=== PATIENT | female | born 1995 | race Caucasian/White ===

== ENCOUNTER 2022-05-26 13:16 | Outpatient (CLI) | payer MEDICAID, SELFPAY ==
--- NOTE | 2022-05-26 14:09 | US_ITS ---
WS: [id number] LIMITED OBSTETRICAL ULTRASOUND HISTORY: UNSURE OF LMP COMPARISON: None available. Presentation: Breech. Cervix: Closed and normal length. Maternal ovaries are identified and normal. No adnexal mass. Placenta: Posterior, no previa or abruption. Grade: 0 HEART: FHR of 138 BPM. measurements: BPD = 4.6 cm = 20w0d HC = 17.0 cm = 19w5d AC = 14.7 cm = 20w0d FL = 3.1 cm = 19w5d Normal amniotic fluid. EFW: 315 g; %. AGA by ultrasound: 19w6d ALYCIA by ultrasound: 10/14/2022 US/US OB limited [id number] IMPRESSION: 1. Single intrauterine gestation of 19 weeks 6 days with an EDC of 10/14/2022. 2. Normal cardiac activity.
== END 2022-05-26 13:17 | disposition home or self-care (01) ==
LOC: RAD 13:16
PROVIDERS: PCP General Practice; Visit Provider Family Medicine
DX: Z36.87 Encounter for antenatal screening for uncertain dates (principal); Z3A.19 19 weeks gestation of pregnancy
CPT/HCPCS: 76815

== ENCOUNTER 2022-09-08 23:20 | Outpatient (CLI) | payer MEDICAID, SELFPAY ==
[2022-09-08 23:38] VITALS: BP 119/68; PULSE 88
[2022-09-08 23:39] VITALS: TEMP 38.1
[2022-09-09 00:19] VITALS: BP 124/72; PULSE 81
[2022-09-09] MEDS: acetaminophen 325 mg Tablet 650 MG PO (00:31)
[2022-09-09 00:39] VITALS: BP 118/69; PULSE 83
[2022-09-09 00:59] VITALS: BP 109/63; PULSE 74
[2022-09-09 01:11] LABS: Urine Appearance Clear (CLEAR); Urine Color Yellow (Yellow)
[2022-09-09 01:12] LABS: Bacteria Urine 1+ /hpf; Bilirubin Urine Neg (Negative); Blood Urine Neg (Negative); Glucose Urine UA Norm (Normal); Ketones Urine 1+ (Negative); Nitrate Urine Negative (Negative); Protein Urine Trace (Negative); RBC Urine 0-4 /hpf (0-2); Specific Gravity, Urine 1.025 (1.005-1.030); Urobilinogen Urine Norm (Negative); WBC Urine 0-4 /hpf (0-5); pH Urine 6 (5-7)
[2022-09-09 01:14] LABS: Add Urine Culture? No
[2022-09-09 01:20] VITALS: BP 116/74; PULSE 73
[2022-09-09 01:22] LABS: Leukocyte Esterase Urine Negative (Negative)
== END 2022-09-09 01:45 | disposition home or self-care (01) ==
LOC: OPOB 23:21 → OBGYN 09-09 01:37
PROVIDERS: PCP General Practice; Visit Provider Family Medicine
DX: O26.899 Other specified pregnancy related conditions, unspecified trimester (principal); Z3A.00 Weeks of gestation of pregnancy not specified; R10.9 Unspecified abdominal pain
CPT/HCPCS: 59025; 81001; 99211

== ENCOUNTER → 2022-09-10 15:06 | Outpatient (BNVA) | payer MEDICAID, SELFPAY | PROVIDERS: PCP Family Medicine; Visit Provider Registered Nurse Neonatal Intensive Care | DX: R05.9 Cough, unspecified (principal) | CPT/HCPCS: 87400 ==

== ENCOUNTER 2022-10-01 10:31 | Inpatient (IN) | payer MEDICAID, SELFPAY ==
[2022-10-01] VITALS (80 sets, daily range): BP systolic 105–149; BP diastolic 52–86; PULSE 57–86; RESP 16–18; TEMP 36.2–36.6; O2SAT 97–99; BMI 31.2
[2022-10-01] MEDS: ceFAZolin 2,000 MG in sodium chloride 0.9% (plus) 50 ML 100 MG IV (10:00)
[2022-10-01] MEDS: dextrose 5%-lactated ringers 1,000 ML 125 ML IV ×2 (10:15→19:29)
[2022-10-01 10:42] LABS: Basophils % 0.3 %; Eosinophils # 0.1 10^3/uL (0.0-0.8); Eosinophils % 0.8 %; Hematocrit 37.8 % (37.0-47.0); Hemoglobin 12.8 g/dL (11.5-15.3); Lymphocytes # 3.7 10^3/uL (0.8-4.8); Lymphocytes % 28.1 %; Mean Corpuscular HGB Conc 33.9 g/dL (30.0-36.0); Mean Corpuscular Hemoglobin 30.7 pg (28.0-34.0); Mean Corpuscular Volume 90.6 fl (81-99); Mean Platelet Volume 10.6 fL (7.4-10.4); Monocytes # 0.8 10^3/uL (0.2-0.9); Monocytes % 5.9 %; Neutrophils % 64.3 %; Nucleated Red Blood Cells % 0 %; Platelet Count 229 10^3/cmm (130-400); Red Blood Count 4.17 10^6/uL (4.1-5.3); Red Cell Distribution Width 14.1 % (12.1-15.1); White Blood Count 13.1 10^3/uL (4.0-10.0)
[2022-10-01 11:18] LABS: Amphetamines Screen Urine Negative (Negative); Barbiturates Screen Urine Negative (Negative); Benzodiazepines Screen Urine Negative (Negative); Cocaine Screen Urine Negative (Negative); Opiate Screen Urine Negative (Negative); PCP Screen Urine Negative (Negative); THC Screen Urine Positive (Negative)
[2022-10-01] MEDS: fentaNYL 50 mcg/mL INJ 2mL IVP ×2 (11:25→12:57)
[2022-10-01] MEDS: ondansetron 2 mg/ML SDV 2 mL 4 MG IVP (11:26)
[2022-10-01] MEDS: acetaminophen 325 mg Tablet 650 MG PO (11:26)
[2022-10-01] MEDS: lactated ringers 1,000 ML 999 ML IV (12:56)
[2022-10-01] MEDS: lactated ringers 1,000 ML 500 ML IV (14:06)
--- NOTE | 2022-10-01 14:08 | P.ANESUD_ITS ---
Pre-Anesthetic Update Pre-Anesthetic Assessment: Date of Surgery/Procedure: 10/01/22 Preop Racheal gnosis: IUP Proposed Procedure: epidural Any changes to Pre-Anesthetic Assessment?: No Labs Last 48hrs: Short CBC 10/01/22 Range/Units 09:55 WBC 13.1 H (4.0-10.0) 10^3/ uL Hgb 12.8 (11.5-15.3) g/dL Hct 37.8 (37.0-47.0) % MCV 90.6 (81-99) fl Plt Count 229 (130-400) 10^3/c mm Neut % (Auto) 64.3 % Neut # (Auto) 8.40 H (1.8-7.7) 10^3/u L Vitals: Temperature 97.9 F 10/01/22 11:35 Temperature Source Oral 10/01/22 11:35 Pulse Rate 71 10/01/22 14:05 Pulse Rhythm 10/01/22 10:57 Respiratory Rate 18 10/01/22 12:57 Respiratory Effort Non-Labored 10/01/22 12:57 Respiratory Depth Normal 10/01/22 12:57 Respiratory Patter n 10/01/22 12:57 Blood Pressure 138/64 10/01/22 14:05 Pulse Oximetry 98 10/01/22 14:01 Oxygen Delivery Me thod 10/01/22 10:57 Exam: Pre-Anes Outpt Exam: alert, oriented x 3, clear to auscultation bilaterally and regular rate & rhythm Cardiac Studies: No Data to Display
--- NOTE | 2022-10-01 14:08 | ANES.PROC ---
Anesthesia Procedures Procedure/Date: 10/01/22 Epidural: Time Out Performed: Yes Consents Signed: Procedure Consent Consent: requested by attending/covering physician, from patient, from other, risks and benefits reviewed and patient agrees to proceed Lumbar Level: L3-L4 Epidural position: sitting Epidural procedure: sterile prep of area, 1% lidocaine to numb the area, 18 g needle, negative for paresthesia passed, neg for paresthesia, test dose given, 1.5% xylocaine 1:200k epi (5 ml), 0.2% Ropivacaine bolus ml (5), placed PCEA, no systemic response, sterile dressing applied, L.U.D. no apparent complications and 0.2% Ropiavacaine @ mls/hr (3) Additional Comments: ALANIS at 5 cm, threaded to 11 cm. patient reported subsequent pain free contraction
[2022-10-01] MEDS: acyclovir 400 mg Tablet PO (14:39)
--- NOTE | 2022-10-01 17:30 | P.HPUD_ITS ---
Labor & Delivery H&P Update Date of Procedure: October 01, 2022 Date H&P Performed: 09/29/22 Admission Diagnosis: 27-year-old 1 at 38 weeks estimated gestational age presenting to the hospital in active labor Other information: The patient is a 27-year-old female who presented to the hospital with 2 hours of contractions. After 2 hours, she was found to make cervical change, and she was admitted to the hospital in labor. Her has been relatively unremarkable. Her labs were remarkable for having a blood type is O+. Her antibody screen was negative. She is positive for marijuana. She had bacterial vaginosis. She failed her initial glucose screen but passed her 3- hour. Her GBS status is positive. She is rubella immune. She received a Tdap vaccination. Related Problem List Diagnoses (1) 38 weeks gestation of : (2) Positive GBS test: A&P Assessment and plan (1) 38 weeks gestation of : The patient will be started GBS protocol. We will consider fentanyl as well as an epidural to control her pain. We will check a drug screen due to her history of positive marijuana drug screen during her . Status: Acute (2) Positive GBS test: Status: Acute
[2022-10-01] MEDS: ceFAZolin 1,000 MG in sodium chloride 0.9% (plus) 50 ML 100 MG IV (18:07)
[2022-10-02] VITALS (15 sets, daily range): BP systolic 114–155; BP diastolic 61–81; PULSE 61–96; RESP 17–18; TEMP 36.3–37.2
[2022-10-02] MEDS: nicotine 21 mg Patch 1 PATCH TRANSDERMA (00:56)
[2022-10-02] MEDS: benzocaine-menthol 78 gm Canister 1 SPRAY TOPICAL (01:37)
--- NOTE | 2022-10-02 09:19 | PM.DELIVERY ---
Delivery Note: Date of delivery: October 02, 2022 Pre-delivery diagnoses: 27-year-old 1 at 38 weeks estimated gestational age in active labor Post-delivery diagnoses: Status post vacuum-assisted vaginal delivery Procedure: Vacuum-assisted vaginal delivery Estimated blood loss (mL): 150 Pre-Delivery Course: The patient presented to the hospital in active labor. An epidural was placed. An amniotomy was performed. She then progressed to complete and was pushing effectively for about 1/2-hour. The baby then began having persistent late decelerations. As result, I used the vacuum during 1 contraction and we were able to deliver the baby without difficulty. There were no pop offs. Delivery: DELIVERY: The patient progressed to complete without difficulty. She delivered a female with a weight of 5 pounds 13 ounces with Apgars of 9, 10. The baby was delivered from the BRYANT position. The baby's mouth and nose were suctioned at the site of the perineum. The baby was then completely delivered and placed on the mother's abdomen. The cord was then clamped and cut. There was no nuchal cord. There was no meconium. The placenta and 3 vessel cord were delivered intact shortly thereafter. The perineum and vaginal vault were carefully examined. The labia majora and minora were very swollen, but no lacerations were noted. Both the mother and the baby were in stable condition. Post-Delivery Status: Good A&P Assessment and plan (1) Vacuum-assisted vaginal delivery: I anticipate routine care. Coding Level of Care Code Acute Radiator Specialist for [facility] Diagnoses Vacuum-assisted vaginal delivery Z37.9
--- NOTE | 2022-10-02 09:24 | PM.OBGYDC ---
Discharge Providers DATAPOWER DEVELOPER Date of Admission: 10/01/22 10:31 Date of Discharge: 10/02/22 Attending Provider at Admission: Dawit Marrero MD Attending Provider at Discharge: Dawit Marrero MD Primary Care Provider: Dawit Marrero MD Diagnoses at Discharge Discharge Diagnosis (1) 38 weeks gestation of : Status: Acute (2) Positive GBS test: Status: Acute (3) Vacuum-assisted vaginal delivery: Status: Acute Reason for Visit Reason for Visit: contractions Hospital Course Hospital Course The patient presented to the hospital in active labor. An epidural was placed. An amniotomy was performed. The patient progressed to complete and was pushing when she began having sustained heart tone decelerations. As result a vacuum assist was used during 1 contraction. The baby was delivered without difficulty in a vertex position. Both the mother and baby required resuscitative care postdelivery. The mother's bleeding has been within normal limits. Her pain is been well controlled. She has been breast-feeding well. She was positive for marijuana both during her as well as after admission to the hospital. DFS was contacted and will be in touch with the mother. Information Peripartum Data: Infant Delivery Method: Vaginal Physical Exam Narrative: The patient is alert. She appears comfortable. Her heart has a regular rate and rhythm with no murmurs appreciated. Lungs are clear to auscultation bilaterally. Her fundus is firm and below the umbilicus. Urinary Catheter Management: Lopez Latex: Cath Placed During This Visit: yes Reason for Continuing Indwelling Catheter: Acute Urinary Retention or Obstruction Urinary Catheter Date of Insertion: 10/01/22 Urinary Catheter Time of Insertion: 14:30 Discharge Data Studies Completed and Pending Pending at discharge Category Date Time Status Hemagram Timed Lab 10/02/22 10:08 Uncollected Laboratory Results WBC 13.1 10^3/uL (4.0-10.0) H 10/01/22 09:55 RBC 4.17 10^6/uL (4.1-5.3) 10/01/22 09:55 Hgb 12.8 g/dL (11.5-15.3) 10/01/22 09:55 Hct 37.8 % (37.0-47.0) 10/01/22 09:55 MCV 90.6 fl (81-99) 10/01/22 09:55 MCH 30.7 pg (28.0-34.0) 10/01/22 09:55 MCHC 33.9 g/dL (30.0-36.0) 10/01/22 09:55 RDW 14.1 % (12.1-15.1) 10/01/22 09:55 Plt Count 229 10^3/cmm (130-400) 10/01/22 09:55 MPV 10.6 fL (7.4-10.4) H 10/01/22 09:55 Neut % (Auto) 64.3 % 10/01/22 09:55 Lymph % (Auto) 28.1 % 10/01/22 09:55 [place] % (Auto) 5.9 % 10/01/22 09:55 Eos % (Auto) 0.8 % 10/01/22 09:55 Baso % (Auto) 0.3 % 10/01/22 09:55 Neut # (Auto) 8.40 10^3/uL (1.8-7.7) H 10/01/22 09:55 Lymph # (Auto) 3.7 10^3/uL (0.8-4.8) 10/01/22 09:55 [place] # (Auto) 0.8 10^3/uL (0.2-0.9) 10/01/22 09:55 Eos # (Auto) 0.1 10^3/uL (0.0-0.8) 10/01/22 09:55 Baso # (Auto) 0.0 10^3/uL (0.0-0.1) 10/01/22 09:55 Nucleated RBC % (auto) 0 % 10/01/22 09:55 Nucleated RBCs # 0.0 /100WBC 10/01/22 09:55 Urine Opiates Screen Negative ng/mL (Negative) 10/01/22 09:55 Ur Barbiturates Screen Negative ng/mL (Negative) 10/01/22 09:55 Ur Phencyclidine Scrn Negative ng/mL (Negative) 10/01/22 09:55 Ur Amphetamines Screen Negative ng/mL (Negative) 10/01/22 09:55 U Benzodiazepines Scrn Negative ng/mL (Negative) 10/01/22 09:55 Urine Cocaine Screen Negative ng/mL (Negative) 10/01/22 09:55 U Marijuana (THC) Screen Positive ng/mL (Negative) H 10/01/22 09:55 Vitals Last Vital Signs Temp 98.9 F 10/02/22 05:45 Pulse 70 10/02/22 05:45 Resp 16 10/01/22 22:45 BP 139/66 10/02/22 05:45 Pulse Ox 99 10/01/22 14:36 O2 Del Method 10/01/22 10:57 Discharge Plan Discharge Patient Disposition: Home Condition: Stable Prescriptions: New ibuprofen 800 mg Tablet 800 mg PO TID Qty: 45 0RF Continued prenat.vits,darren,mdf-xxro-djogz Tablet 1 tab PO DAILY Discontinued ondansetron HCl 4 mg tablet 4 mg PO Q8H Discharge Orders: Discharge Order (Routine); Ordered 10/02/22 Ordered By: Dawit Marrero Referrals: Dawit Marrero MD [Primary Care Provider] - 6 Weeks Discharge Diet: Usual diet Discharge Activity: Limit activity as instructed Patient Instructions: Opioid Safety Discharge Attestations DATAPOWER DEVELOPER Time Spent in Discharge Care*: less than 30 min Coding Level of Care Code Acute Family Nurse for [facility] Diagnoses 38 weeks gestation of Z3A.38 Positive GBS test B95.1 Vacuum-assisted vaginal delivery Z37.9
[2022-10-02] MEDS: docusate sodium 100 mg Capsule PO (09:48)
[2022-10-02] MEDS: ibuprofen 800 mg tablet PO ×3 (09:48→21:16)
[2022-10-02] MEDS: prenatal vitamin Capsule 1 CAP PO (09:49)
[2022-10-02 10:12] LABS: Hematocrit 38.1 % (37.0-47.0); Hemoglobin 12.8 g/dL (11.5-15.3); Mean Corpuscular HGB Conc 33.6 g/dL (30.0-36.0); Mean Corpuscular Hemoglobin 30.5 pg (28.0-34.0); Mean Corpuscular Volume 90.9 fl (81-99); Mean Platelet Volume 10.9 fL (7.4-10.4); Platelet Count 223 10^3/cmm (130-400); Red Blood Count 4.19 10^6/uL (4.1-5.3); Red Cell Distribution Width 14.2 % (12.1-15.1); White Blood Count 19.4 10^3/uL (4.0-10.0)
--- NOTE | 2022-10-02 14:02 | ANE.PACU2 ---
Inpatient post-anesthesia follow up: Airway intact: Yes Vital signs: Temperature 97.7 F Pulse Rate 96 Respiratory Rate 17 Blood Pressure 155/81 Pulse Oximetry 99 Oxygen Delivery Me thod Room Air Oxygen Flow Rate Fraction of Inspir ed Oxygen Hydration adequate: Yes Nausea and vomiting: No Pain level: 1 Mental status: Baseline
[2022-10-02] MEDS: lanolin oint 7 gm 1 APPLIC TOPICAL (21:20)
[2022-10-03 02:00] VITALS: BP 155/80; PULSE 68; RESP 18; TEMP 36.4
[2022-10-03] MEDS: docusate sodium 100 mg Capsule PO (08:24)
[2022-10-03] MEDS: ibuprofen 800 mg tablet PO (08:24)
[2022-10-03] MEDS: prenatal vitamin Capsule 1 CAP PO (08:24)
[2022-10-03 10:00] VITALS: BP 138/80; PULSE 74; RESP 16; TEMP 36.6; O2SAT 97
--- NOTE | 2022-10-03 10:20 | PC.NURSE ---
Received call from [facility] with [facility]. Pt mothers home failed home inspection, baby's fathers home passed home inspection. Mother and baby are to be discharged home with Bijan and his mother Renetta.
[2022-10-03 13:45] VITALS: BP 129/77; PULSE 82; RESP 18; TEMP 36.7; O2SAT 98
== END 2022-10-03 13:52 | disposition home or self-care (01) | DRG 807 ==
LOC: OPOB 10:31 → OBGYN 10:31
PROVIDERS: Admitting Provider Family Medicine; PCP Family Medicine; Visit Provider Family Medicine
DX: O99.334 Smoking (tobacco) complicating childbirth (principal); Z37.0 Single live birth; F17.210 Nicotine dependence, cigarettes, uncomplicated; O99.344 Other mental disorders complicating childbirth; O99.324 Drug use complicating childbirth; F12.90 Cannabis use, unspecified, uncomplicated; O99.824 Streptococcus B carrier state complicating childbirth; O76 Abnormality in fetal heart rate and rhythm complicating labor and delivery; Z3A.38 38 weeks gestation of pregnancy; F32.A Depression, unspecified
CPT/HCPCS: 12345; 36415; 51702; 59025; 59409; 80306; 85025; 85027; 96374; 96376; 98960; 99211; J0690; J2405; J2795; J3010; J7120; J7121; J8499

== ENCOUNTER → 2023-06-01 14:58 | Outpatient (BNVA) | payer MEDICAID, SELFPAY | PROVIDERS: PCP Family Medicine; Visit Provider Nurse Practitioner Family | DX: R05.9 Cough, unspecified (principal); J06.9 Acute upper respiratory infection, unspecified | CPT/HCPCS: 87426 ==

== ENCOUNTER → 2024-02-10 18:17 | Outpatient (BNVA) | payer OTHER, MEDICAID, SELFPAY | PROVIDERS: PCP Family Medicine; Visit Provider Physician Assistant | DX: R50.9 Fever, unspecified (principal) | CPT/HCPCS: 87400 ==

== ENCOUNTER 2025-05-03 03:53 | Emergency (ER) | payer MEDICAID, SELFPAY ==
[2025-05-03 04:05] VITALS: PULSE 92; RESP 16; TEMP 37; O2SAT 99; BMI 26.3
[2025-05-03 04:20] VITALS: BP 150/87; PULSE 91; O2SAT 98
--- NOTE | 2025-05-03 04:25 | XRR_ITS ---
PROCEDURE INFORMATION: Exam: XR Right Hand Exam date and time: 05/03/2025 4:34 AM Age: 29 years old Clinical indication: Pain; Finger(s); Right; Additional info: Traumatic hand pain TECHNIQUE: Imaging protocol: Radiologic exam of the right hand. Views: 3 or more views. COMPARISON: No relevant prior studies available. FINDINGS: Bones/joints: Benign sclerotic changes 5th metacarpal. Soft tissues: Normal. XR/XR hand RT min 3V* [id number] IMPRESSION: No acute findings.
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
[2025-05-03] MEDS: HYDROcodone-acetaminophen 10-325 mg Tablet 2 TAB PO (05:08)
[2025-05-03 05:44] VITALS: BP 121/55; PULSE 76; RESP 16; O2SAT 96
--- NOTE | 2025-05-03 05:45 | PC.NURSE ---
pt picked up by mother upon discharge
== END 2025-05-03 05:49 | disposition home or self-care (01) ==
PROVIDERS: Emergency Provider Emergency Medicine; PCP Family Medicine
DX: S63.614A Unspecified sprain of right ring finger, initial encounter (principal); S63.616A Unspecified sprain of right little finger, initial encounter; W22.09XA Striking against other stationary object, initial encounter
CPT/HCPCS: 73130; 99283; J9999

== ENCOUNTER 2025-05-06 02:50 | Emergency (ER) | payer MEDICAID, SELFPAY ==
[2025-05-06 02:55] VITALS: BP 142/76; PULSE 98; RESP 24; TEMP 36.6; O2SAT 100; BMI 25.2
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
[2025-05-06 05:10] VITALS: BP 133/78; PULSE 78; RESP 16; O2SAT 99
== END 2025-05-06 05:13 | disposition home or self-care (01) ==
PROVIDERS: Emergency Provider General Practice; PCP Family Medicine
DX: S61.211A Laceration without foreign body of left index finger without damage to nail, initial encounter (principal); W26.8XXA Contact with other sharp object(s), not elsewhere classified, initial encounter
CPT/HCPCS: 99282

== ENCOUNTER 2025-05-28 18:43 | Emergency (ER) | payer MEDICAID, SELFPAY ==
[2025-05-28 19:03] VITALS: BP 175/129; PULSE 94; RESP 20; TEMP 36.7; O2SAT 97; BMI 25.3
--- NOTE | 2025-05-28 19:14 | ECG_ITS ---
[facility] Date: 2025-05-28 Pat Name: Suhail Fam Department: Room: Gender: Female Director Of Hotel: : 1995 Requested By: Fly Olson Order Number: [id number] Matthew MD: Alma Rogers M.D. Measurements Intervals [place] Rate: 89 P: 79 CT: 117 QRS: 54 QRSD: 93 T: 36 QT: 344 QTc: 420 Interpretive Statements SINUS RHYTHM WITH SHORT CT INTERVAL LEFT ATRIAL ENLARGEMENT [-0.15mV P-WAVE IN V1/V2] POSSIBLE RIGHT VENTRICULAR CONDUCTION DELAY [RSR (QR) IN V1/V2] Compared to ECG 02/26/2019 04:25:[address] interval now present Electronically Signed On 05-29-2025 08:06:51 CDT by Alma Rogers M.D. [id number]
--- NOTE | 2025-05-28 19:30 | XRR_ITS ---
PROCEDURE INFORMATION: Exam: XR Chest Exam date and time: 05/28/2025 7:53 PM Age: 30 years old Clinical indication: Chest wall pain; Additional info: Chest pain TECHNIQUE: Imaging protocol: Radiologic exam of the chest. Views: 1 view. COMPARISON: CR XR chest 1V [id number] 02/26/2019 4:49 AM FINDINGS: Lungs: Unremarkable. No consolidation. Pleural spaces: Unremarkable. No pleural effusion. No pneumothorax. Heart/Mediastinum: Unremarkable. No cardiomegaly. Bones/joints: Unremarkable. XR/XR chest 1V portable [id number] IMPRESSION: No acute findings.
[2025-05-28 20:12] VITALS: BP 128/64; PULSE 75; O2SAT 98
[2025-05-28 20:13] LABS: Hematocrit 38.8 % (36-47); Hemoglobin 13.30 g/dL (11.27-16.99); Mean Corpuscular HGB Conc 34.3 g/dL (30-55); Mean Corpuscular Hemoglobin 29.6 pg (27-33); Mean Corpuscular Volume 86.4 fl (85-98); Nucleated Red Blood Cells % 0 %; Platelet Count 232 10^3/cmm (157-399); Red Blood Count 4.49 10^6/uL (3.85-5.65); White Blood Count 8.83 10^3/uL (3.29-11.43)
[2025-05-28 20:29] LABS: Troponin(5th) Baseline < 6 ng/L (0-10)
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
[2025-05-28 20:32] LABS: Alanine Aminotransferase 18 U/L (0-33); Albumin Level 4.4 g/dL (3.5-5.2); Alkaline Phosphatase 62 U/L (35-105); Anion Gap 15.6 (5-19); Aspartate Amino Transferase 17 U/L (0-32); Blood Urea Nitrogen 13 mg/dL (6-20); Calcium 8.8 mg/dL (8.5-10.5); Carbon Dioxide 22 mmol/L (22-29); Chloride 105 mmol/L (98-107); Creatinine Clr Calc Pharmacy 86.1665; Globulin 2.0 g/dL (1.3-4.6); Glucose 86 mg/dL (65-115); Lipase 23 U/L (13-60); Osmolality Calculated 287 mOsm/kg (285-295); Potassium 3.6 mmol/L (3.5-5.1); Sodium 139 mmol/L (136-145); Total Protein 6.4 g/dL (6.6-8.7)
[2025-05-28] MEDS: morphine 4 mg/mL SDV 1 mL IVP (20:54)
[2025-05-28 20:55] VITALS: BP 111/71; PULSE 66; O2SAT 99
[2025-05-28 21:09] VITALS: BP 137/88; PULSE 78; RESP 16; O2SAT 97
[2025-05-28 22:33] LABS: Troponin 5 2HR < 6.0 ng/L (0-10); Troponin 5 2HR Delta 0 ABS# (0-10)
== END 2025-05-28 22:50 | disposition home or self-care (01) ==
PROVIDERS: Emergency Provider Student in an Organized Health Care Education/Training Program; PCP Family Medicine
DX: F41.0 Panic disorder [episodic paroxysmal anxiety] (principal)
CPT/HCPCS: 36415; 71045; 80053; 83690; 84484; 85025; 93005; 96374; 99285; J2270; J9999

== ENCOUNTER → 2025-09-10 13:07 | Outpatient (BNVA) | payer MEDICAID, SELFPAY | PROVIDERS: PCP Family Medicine; Visit Provider Obstetrics & Gynecology | DX: R10.20 Pelvic and perineal pain unspecified side (principal); Z97.5 Presence of (intrauterine) contraceptive device; N88.8 Other specified noninflammatory disorders of cervix uteri; N83.01 Follicular cyst of right ovary | CPT/HCPCS: 76830; 88305 ==